=== PATIENT | female | born 1985 | race Caucasian/White ===

== ENCOUNTER 2022-03-05 10:44 | Emergency (ER) | payer MEDICAID, SELFPAY ==
--- NOTE | 2022-03-05 11:20 | PC.NURSE ---
pt brought by [facility], PD left without speaking to nursing, dispatch called and spoke with officer Luke of [facility], per Officer pt is not suicidal and just wanted a ride to ER to be seen for her mental health she is not on a transport hold and denies suicidal ideation to officer and this job specification writer, pt states, I was just being seen for my anxiety and I am feeling better now and I have a therapy appointment on Sunday, pt agrees to return as needed, signed refusal of service form
== END 2022-03-05 11:20 | disposition left against medical advice (07) ==
PROVIDERS: Emergency Provider Family Medicine
DX: Z53.21 Procedure and treatment not carried out due to patient leaving prior to being seen by health care provider (principal)

== ENCOUNTER 2022-12-08 09:38 | Outpatient (CLI) | payer BC, SELFPAY | END 2022-12-08 09:39 | disposition home or self-care (01) | PROVIDERS: Visit Provider Registered Nurse | DX: Z01.419 Encounter for gynecological examination (general) (routine) without abnormal findings (principal); Z13.6 Encounter for screening for cardiovascular disorders; Z11.3 Encounter for screening for infections with a predominantly sexual mode of transmission; Z83.49 Family history of other endocrine, nutritional and metabolic diseases | CPT/HCPCS: 80061; 84443; 87491; 87591 ==

== ENCOUNTER 2023-06-21 20:54 | Outpatient (CLI) | payer BC, SELFPAY | END 2023-06-21 20:55 | disposition home or self-care (01) | LOC: AMB 06-25 23:13 | PROVIDERS: Visit Provider Emergency Medicine | DX: F29 Unspecified psychosis not due to a substance or known physiological condition (principal) | CPT/HCPCS: A0998 ==

== ENCOUNTER 2023-06-21 21:59 | Emergency (ER) | payer BC, SELFPAY ==
[2023-06-21 22:23] VITALS: BP 116/83; PULSE 100; RESP 18; TEMP 36.9; O2SAT 97; BMI 23.4
[2023-06-21 22:42] LABS: Appearance Urine Cloudy (Clear); Bilirubin Urine Negative (Negative); Blood Urine 2+ (Negative); Color Urine Yellow (Yellow); Glucose Urine Negative (Negative); Ketones Urine 1+ (Negative); Leukocyte Esterase Urine 2+ (Negative); Nitrite Urine Positive (Negative); Protein Urine Negative (Negative); Specific Gravity Urine 1.015 (1.000-1.030); Urobilinogen Urine 0.2 (0.2-1.0)
[2023-06-21 22:45] LABS: RBC Urine 0-2 (0-2)
[2023-06-21 22:46] LABS: Bacteria Urine Many; Squamous Epithelial Cell Urine Few (None-Few); WBC Urine 50-100 (0-5)
--- NOTE | 2023-06-21 23:06 | ED_ITS ---
HPI - Psych General Date Seen: 06/21/23 Chief Complaint: Psychiatric Problem/Disorder Stated Complaint: Mental Health Time Seen by Provider: 06/21/23 22:06 Source: patient Mode of arrival: ambulatory Limitations: no limitations History of Present Illness HPI Narrative: Patient is a 37-year-old female with history of depression presenting to the emergency department for a mental health evaluation. She states for the past 6 months she has been feeling more and more isolated and depressed. She states she is not currently have suicidal or homicidal thoughts at this time but will occasionally think about not wanting to live. Denies any plan at this time. Add is no true suicide attempt in the past and was last hospitalized for depression last year. She has not seen a therapist or a psychiatric provider at this time. She was last on medication for depression 1 year ago. She states she stopped them because her family was telling her they do more harm than good. She states she thinks she needs them again. Denies any auditory or visual hallucinations Related Data Home Medications Medication Instructions Recorded Confirmed No Known Home Medications 12/08/22 12/08/22 Allergies Allergy/AdvReac Type Severity Reaction Status Date / Time No Known Allergies Allergy Unknown Unknown Verified 12/08/22 08:50 Review of Systems Status of ROS: Reports: 10 or more systems reviewed and unremarkable except as noted in History and below PFSH PFSH Surgical History History of left breast biopsy ?Z98.890 - Other specified postprocedural states (ICD-10) Family History Father ASCVD (arteriosclerotic cardiovascular disease) Abuse, drug or alcohol Aunt Breast cancer Grandmother Cervical cancer Osteoporosis Sister Anemia Abuse, drug or alcohol Brother Abuse, drug or alcohol Other Thyroid disease Social History Smoking Status: Current every day smoker Second hand tobacco smoke exposure: No How often do you have a drink containing alcohol: never How often do you have six or more drinks on one occasion: Never AUDIT-C Alcohol total score: 0 Non-prescribed substance use: denies use Little interest or pleasure in doing things: more than half the days Feeling down, depressed, or hopeless: more than half the days Exam Narrative: Exam Narrative: Const: Well-nourished, Well-developed, in mild distress Eyes: PERRL, no conjunctival injection, and symmetrical lids HENT: Atraumatic external nose and ears. Moist mucous membranes. Neck: Symmetric, trachea midline, No thyromegaly. CVS: RRR, No murmurs or gallops. Peripheral pulses 2+ and equal in all e xtremities RESP: Unlabored respiratory effort. Clear to auscultation bilaterally. GI: Nontender/Nondistended, No rebound or guarding. MSK:Extremities w/o deformity, Normal Active ROM Skin: Warm, Dry. No rashes or lesions. Neuro: Normal Muscle tone, No focal neurological deficits. Psych: Awake, Alert, & Oriented x3. Appropriate mood and affect. Const: Vital Signs, click to edit/add: Vital Signs - 24 hr 06/21/23 22:23 Temperature 98.5 F Pulse Rate [Pulse Oximeter] 100 Respiratory Rate 18 Blood Pressure [Ri ght Upper Arm] 116/83 Pulse Oximetry 97 Oxygen Delivery Me thod Room Air Course Vital Signs Vital signs: Initial Vital Signs Temperature 98.5 F 06/21/23 22:23 Temperature Source Temporal Artery Scan 06/21/23 22:23 Pulse Rate 100 06/21/23 22:23 Respiratory Rate 18 06/21/23 22:23 Blood Pressure 116/83 06/21/23 22:23 Blood Pressure Mean 94 06/21/23 22:23 Blood Pressure Position Sitting 06/21/23 22:23 Pulse Oximetry 97 06/21/23 22:23 Oxygen Delivery Method Room Air 06/21/23 22:23 Vital Signs Temperature 98.5 F 06/21/23 22:23 Pulse Rate 100 06/21/23 22:23 Respiratory Rate 18 06/21/23 22:23 Blood Pressure 116/83 06/21/23 22:23 Pulse Oximetry 97 06/21/23 22:23 Oxygen Delivery Method Room Air 06/21/23 22:23 Temperature 98.5 F 06/21/23 22:23 Pulse Rate 100 06/21/23 22:23 Respiratory Rate 18 06/21/23 22:23 Blood Pressure 116/83 06/21/23 22:23 Pulse Oximetry 97 06/21/23 22:23 Oxygen Delivery Method Room Air 11/16/23 22:23 MDM - Psych MDM Narrative Medical decision making narrative: Patient is a 37-year-old female presenting for psychiatric evaluation. Denies suicidal/homicidal ideation or hallucinations at this time. We will check a urine drug screen. Urine drug screen came back positive for amphetamines, methamphetamines, benzodiazepines. She was evaluated by [facility] and they recommended outpatient treatment which seems reasonable at this time. They have her set up for psychiatry and therapy next week. Patient is agreeable with this plan. Of note urinalysis shows signs of UTI but she is currently asymptomatic and this is not need to be treated at this time. Lab Data Labs: Lab Results 06/21/23 Range/Units 22:22 Urine Color Yellow (Yellow) Urine Appearance Cloudy A (Clear) Urine pH 6.0 (5.0-8.5) Ur Specific [place] 1.015 (1.000-1.030) Urine Protein Negative (Negative) Urine Glucose (UA) Negative (Negative) Urine Ketones 1+ A (Negative) Urine Blood 2+ A (Negative) Urine Nitrite Positive A (Negative) Urine Bilirubin Negative (Negative) Urine Urobilinogen 0.2 (0.2-1.0) Ur Leukocyte Esterase 2+ A (Negative) Urine RBC 0-2 (0-2) Urine WBC 50-100 A (0-5) Urine WBC Clumps None (None) Ur Squamous Epith Cells Few (None-Few) Urine Bacteria Many A (None) Urine Opiates Screen Negative (Negative) Ur Oxycodone Screen Negative (Negative) Urine Methadone Screen Negative (Negative) Ur Propoxyphene Screen Negative (Negative) Ur Barbiturates Screen Negative (Negative) U Tricyclic Antidepress Negative (Negative) Ur Phencyclidine Scrn Negative (Negative) Ur Amphetamines Screen POSITIVE A (Negative) U Methamphetamines Scrn POSITIVE A (Negative) U Benzodiazepines Scrn POSITIVE A (Negative) Urine Cocaine Screen Negative (Negative) U Marijuana (THC) Screen Negative (Negative) Ur Drug Screen Comment See Note Discharge Plan Discharge Clinical Impression: Depression Qualifiers: Depression Type: unspecified Qualified Code(s): F32.A - Depression, unspecified Patient Disposition: Home, Self-Care Condition: Stable Instructions: Depression (ED) Additional Instructions: Follow-up with the appointment scheduled via [facility]. Your appointment information beyond the paperwork provided. Return to emergency department for new or worse colt symptoms. Prescriptions: No Action No Known Home Medications Follow Up/Referrals: Provider,Not a Local [Primary Care Provider] - Stand Alone Forms: [facility] Info Instructions
[2023-06-21 23:12] LABS: Amphetamine Screen Urine POSITIVE (Negative); Barbiturate Screen Urine Negative (Negative); Benzodiazepines Screen Urine POSITIVE (Negative); Cannabinoid Screen Urine Negative (Negative); Cocaine Screen Urine Negative (Negative); Methadone Screen Urine Negative (Negative); Methamphetamines Screen Urine POSITIVE (Negative); Opiate Screen Urine Negative (Negative); Oxycodone Screen Urine Negative (Negative); Phencyclidine Screen Urine Negative (Negative); Tricyclic Antidepressant Urine Negative (Negative)
[2023-06-22 00:03] VITALS: BP 121/74; PULSE 85; RESP 18; TEMP 36.7; O2SAT 97
[2023-06-22 00:04] VITALS: BP 121/74; PULSE 85; RESP 18; TEMP 36.7
== END 2023-06-22 00:05 | disposition home or self-care (01) ==
PROVIDERS: Emergency Provider Student in an Organized Health Care Education/Training Program
DX: F32.A Depression, unspecified (principal)
CPT/HCPCS: 80306; 81003; 81015; 87086; 87186; 99283

== ENCOUNTER 2023-07-02 15:00 | Outpatient (REF) | payer BC, SELFPAY | END 2023-07-02 15:01 | disposition home or self-care (01) | LOC: NFLDREF 15:00 | PROVIDERS: Visit Provider Registered Nurse | DX: R30.0 Dysuria (principal); N39.0 Urinary tract infection, site not specified | CPT/HCPCS: 87086; 87186 ==